=== PATIENT | female | born 1935 | race Asian ===

== ENCOUNTER → 2018-01-20 | Outpatient (CLI) | payer OTHER | LOC: FIMAGING 13:20 | PROVIDERS: ATTEND Internal Medicine | DX: Z12.31 Encounter for screening mammogram for malignant neoplasm of breast (principal); Z80.3 Family history of malignant neoplasm of breast ==

== ENCOUNTER 2018-02-25 20:43 | Inpatient (IN) | payer OTHER ==
[2018-02-25] MEDS ORDERED: VANCOMYCIN HCL/NORMAL SALINE 250 ML IV ONE (21:08)
[2018-02-25] MEDS ORDERED: cefTRIAXone 1 GM/DEXTROSE 1 GM/50 ML BAG IV ONE (21:10)
[2018-02-25 21:14] LABS: PLATELET COUNT 368 10^3/uL (150-400)
--- NOTE | 2018-02-25 21:16 | EDPHY ---
H & P Time Seen by Provider: 02/25/18 21:05 HPI/ROS: CHIEF COMPLAINT: Altered mental status, fever HISTORY OF PRESENT ILLNESS: The patient is an 82-year-old female who presents emergency department via EMS with altered mental status. Patient lives at [facility]. Her niece, who is her [id number], was unable to get a hold of her between 3 and 7. This is atypical. She had the staff with check on her. The patient was found on the floor. Is unclear exactly what happened but the niece thinks that she fell out of her rising chair. The patient is not had her baseline. She seems confused. She is not answering questions appropriately. EMS found the patient to have a temperature 103 degrees per report. February 23 is a day of celebration for the family. However, the patient was able to attend. She told her niece that she had a lower headache, neck pain and shoulder pain. Her niece checked on her the next day and she said she was fine but that she thought need to stay in bed. REVIEW OF SYSTEMS: 10 systems were reveiwed and are negative with the exception of the elements mentioned in the history of present illness. Past Medical/Surgical History: Includes polymyositis, hypertension, neuropathy Social history: Patient lives in [facility] Smoking Status: Never smoked Physical Exam: Vitals noted GENERAL: No acute distress, alert. Sitting in bed but her head is down. Her niece states this is her baseline HEENT: Eyes normal to inspection, normal pharynx, no signs of dehydration. Patient's left cheek extending to her left ear is erythematous and mildly warm. There is mild swelling of the face. The patient's knee states this is not normal. NECK: Normal, supple. Foot no spinal tenderness RESPIRATORY: Clear to auscultation bilaterally, no rales, rhonchi or wheezing. CVS: Regular rate and rhythm, no rubs, murmurs, or gallops. ABDOMEN: Soft, nontender, nondistended, no organomegaly. BACK: Normal to inspection, no CVA tenderness. SKIN: Normal color, no rash, warm, dry. No pallor. EXTREMITIES: No pedal edema, no calf tenderness, no Homans sign or cords, no joint swelling. NEURO/PSYCH: Alert and oriented, flat affect, patient moves all extremities but has weakness in her thighs. This is baseline. No obvious cranial nerve deficit. Constitutional: Initial Vital Signs Temperature (C) 38.0 C 02/25/18 20:46 Heart Rate 110 H 02/25/18 20:46 Respiratory Rate 18 02/25/18 20:46 Blood Pressure 140/72 H 02/25/18 20:46 O2 Sat (%) 95 02/25/18 20:46 O2 Delivery Mode Nasal Cannula O2 (L/minute) 2 Allergies/Adverse Reactions: No Known Allergies Allergy (Verified 02/25/18 20:48) Home Medications: Medication Instructions Recorded Aspirin 81mg (*) 09/06/17 Atenolol 09/06/17 Citalopram 09/06/17 Imuran 50 mg (*) 09/06/17 Medical Decision Making - Diagnostics Imaging Results: Imaging Impressions Chest X-Ray 02/25/18 21:08 Impression: Negative portable chest. Head CT 02/25/18 21:17 Impression: Negative noncontrast CT of the brain. Probable right maxillary sinusitis. Results called to Dr. Eleanor Monte at 9:45 PM at the time of the interpretation. ED Course/Re-evaluation: The in the emergency department I discussed possible etiologies with the patient and family. I answered all her questions. IV was placed. Laboratory studies, EKG and head CT were ordered. Blood cultures were drawn. Due the redness on the patient's face and fever the patient was given Rocephin 1 g IV and vancomycin 1 g IV[place] [address]. Patient's hematocrit is normal. Patient's coags are normal. Lactic acid is 1.9. 2150: CT of the head: Please refer the dictated report by Dr. Guzman. Patient has fluid in her right maxillary sinus. No other intracranial pathology. Patient's sodium is low at 127. Potassium 3.9. Creatinine 0.7. Total bili is 1.1. I discussed the case with the patient and her niece. Negative for flu. I discussed case with the hospitalist service, Dr. De Dios. Patient will be admitted for further evaluation care. Differential Diagnosis: My differential includes but is not limited to facial cellulitis, bacteremia, sepsis, CVA, dissection, aneurysm, pneumonia - Data Points Laboratory Results: Laboratory Results 02/25/18 20:55 02/25/18 20:55 02/25/18 02/25/18 02/25/18 21:20 20:55 20:55 WBC 22.30 10^3/uL H 10^3/uL (3.80-9.50) RBC 4.45 10^6/uL 10^6/uL (4.18-5.33) Hgb 14.7 g/dL g/dL (12.6-16.3) Hct 41.7 % % (38.0-47.0) MCV 93.7 fL fL (81.5-99.8) MCH 33.0 pg pg (27.9-34.1) MCHC 35.3 g/dL g/dL (32.4-36.7) RDW 15.0 % % (11.5-15.2) Plt Count 368 10^3/uL 10^3/uL (150-400) MPV 8.8 fL fL (8.7-11.7) Neut % (Auto) Not Reported Lymph % (Auto) Not Reported [place] % (Auto) Not Reported Eos % (Auto) Not Reported Baso % (Auto) Not Reported Nucleat RBC Rel Count Not Reported Absolute Neuts (auto) Not Reported Absolute Lymphs (auto) Not Reported Absolute Monos (auto) Not Reported Absolute Eos (auto) Not Reported Absolute Basos (auto) Not Reported Absolute Nucleated RBC Not Reported Immature Gran % Not Reported Seg Neutrophils % 87.0 % % Band Neutrophils % 6.0 % % Lymphocytes % 1.0 % % Monocytes % 5.0 % % Eosinophils % 0.0 % % Basophils % 0.0 % % Metamyelocytes % 1.0 % % Myelocytes % 0.0 % % Promyelocytes % 0.0 % % Blast Cells % 0.0 % % Immature Gran # Not Reported Absolute Seg Neuts 19.40 10^3/uL H 10^3/uL (1.70-6.50) Absolute Band Neuts 1.34 10^3/uL H 10^3/uL (0.00-0.70) Absolute Lymphocytes 0.22 10^3/uL L 10^3/uL (1.00-3.00) Absolute Monocytes 1.12 10^3/uL H 10^3/uL (0.30-0.80) Absolute Eosinophils 0.00 10^3/uL L 10^3/uL (0.03-0.40) Absolute Basophils 0.00 10^3/uL L 10^3/uL (0.02-0.10) Absolute Metamyelocyte 0.22 10^3/mL H 10^3/mL (0.00-0.00) Absolute Myelocytes 0.00 10^3/mL 10^3/mL (0.00-0.00) Absolute Promyelocytes 0.00 10^3/uL 10^3/uL (0.00-0.00) Absolute Plasma Cells 0.00 10^3/uL 10^3/uL (0.00-0.00) Nucleated RBCs 0 /100 WBC /100 WBC (0-0) Absolute Blast Cells 0.00 10^3/uL 10^3/uL (0.00-0.00) Plasma Cells % 0.0 % % Platelet Estimate ADEQUATE (ADEQ) Microcytic Cells 1+ H Oval Macrocytes 1+ H PT 15.0 SEC SEC (12.0-15.0) INR 1.16 (0.83-1.16) APTT 30.1 SEC SEC (23.0-38.0) VBG Lactic Acid Sodium Potassium Chloride Carbon Dioxide Anion Gap BUN Creatinine Estimated GFR Glucose Calcium Total Bilirubin Nasal Influenza A PCR NEGATIVE FOR FLU A (NEGATIVE) Nasal Influenza B PCR NEGATIVE FOR FLU B (NEGATIVE) 02/25/18 02/25/18 20:55 20:55 WBC RBC Hgb Hct MCV MCH MCHC RDW Plt Count MPV Neut % (Auto) Lymph % (Auto) [place] % (Auto) Eos % (Auto) Baso % (Auto) Nucleat RBC Rel Count Absolute Neuts (auto) Absolute Lymphs (auto) Absolute Monos (auto) Absolute Eos (auto) Absolute Basos (auto) Absolute Nucleated RBC Immature Gran % Seg Neutrophils % Band Neutrophils % Lymphocytes % Monocytes % Eosinophils % Basophils % Metamyelocytes % Myelocytes % Promyelocytes % Blast Cells % Immature Gran # Absolute Seg Neuts Absolute Band Neuts Absolute Lymphocytes Absolute Monocytes Absolute Eosinophils Absolute Basophils Absolute Metamyelocyte Absolute Myelocytes Absolute Promyelocytes Absolute Plasma Cells Nucleated RBCs Absolute Blast Cells Plasma Cells % Platelet Estimate Microcytic Cells Oval Macrocytes PT INR APTT VBG Lactic Acid 1.9 mmol/L mmol/L (0.7-2.1) Sodium 127 mEq/L L mEq/L (135-145) Potassium 3.9 mEq/L mEq/L (3.5-5.2) Chloride 93 mEq/L L mEq/L (97-110) Carbon Dioxide 23 mEq/l mEq/l (22-31) Anion Gap 11 mEq/L mEq/L (6-14) BUN 15 mg/dL mg/dL (7-23) Creatinine 0.7 mg/dL mg/dL (0.6-1.0) Estimated GFR > 60 Glucose 126 mg/dL H mg/dL (70-100) Calcium 8.6 mg/dL mg/dL (8.5-10.4) Total Bilirubin 1.1 mg/dL mg/dL (0.1-1.4) Nasal Influenza A PCR Nasal Influenza B PCR Medications Given: Discontinued Medications Vancomycin/Sodium Chloride (Vancomycin 1 Gm (Premix)) 250 mls @ 250 mls/hr IV EDNOW ONE PRN Reason: Protocol Stop: 02/25/18 22:07 Last Admin: 02/25/18 21:18 Dose: 250 mls Ceftriaxone Sodium/Dextrose (Rocephin 1 Gm (Premix)) 50 mls @ 100 mls/hr IV EDNOW ONE PRN Reason: Protocol Stop: 02/25/18 21:40 Last Admin: 02/25/18 21:17 Dose: 50 mls Departure - Departure Disposition: [place] Inpatient Acute Clinical Impression: Facial cellulitis, Hyponatremia Fever Qualifiers: Fever type: unspecified Qualified Code(s): R50.9 - Fever, unspecified Condition: Good Referrals: JENNY CANTU [Non Staff Provider (MD)] - As per Instructions
[2018-02-25 21:28] LABS: INR 1.16 (0.83-1.16)
[2018-02-25] MEDS ORDERED: ONDANSETRON DISINTEGRATING 4 MG TAB PO PRN (23:06)
[2018-02-25] MEDS ORDERED: ONDANSETRON 4 MG/2 ML VIAL IVP PRN (23:06)
[2018-02-25] MEDS ORDERED: NS 500 ML IV ONE (23:37)
[2018-02-25] MEDS: ACETAMINOPHEN 325 MG TAB PO PRN (23:49)
[2018-02-26] MEDS: AMPICILLIN/SULBACTAM 3 GM in NS 100 ML IV SCH ×5 (00:18→23:14)
--- NOTE | 2018-02-26 01:32 | PDGENHP ---
History and Physical - Chief Complaint Facial swelling - History of Present Illness 82 yo F w/ hx of polymyositis and HTN presents with facial swelling. Her family noted that the patient's face was red and swollen today. They also noticed some fatigue and decreased interaction. As a result, they brought her into the ED for evaluation. In the ED a L facial cellulitis was easily evident from exam. She is displaying sepsis physiology and mild hyponatremia. The patient herself denies symptoms aside from fatigue. She specifically denies fevers and facial pain. Case discussed with Dr. Monte; records reviewed and summarized above. History Information - Allergies/Home Medication List Allergies/Adverse Reactions: No Known Allergies Allergy (Verified 02/25/18 20:48) Home Medications: Aspirin 81mg (*) 09/06/17 [Last Taken Unknown] Atenolol 09/06/17 [Last Taken Unknown] Citalopram 09/06/17 [Last Taken Unknown] Imuran 50 mg (*) 09/06/17 [Last Taken Unknown] I have personally reviewed and updated: family history, medical history - Past Medical History hypertension Additional medical history: Polymyositis - Surgical History Additional surgical history: Patient states only thigh surgery - Family History Additional family history: Asked, denies - Social History Smoking Status: Never smoked Review of Systems Review of Systems: ROS: 10pt was reviewed & negative except for what was stated in HPI & below Physical Exam Physical Exam: Temp Pulse Resp BP Pulse Ox 37.9 C 98 14 119/52 L 96 02/25/18 23:25 02/25/18 23:25 02/25/18 23:25 02/25/18 23:25 02/25/18 23:25 O2 (L/minute) 2 Constitutional: appears nourished, uncomfortable Eyes: PERRL, EOMI Ears, Nose, Mouth, Throat: no oral mucosal ulcers, other (L maxillary facial redness and swelling) Cardiovascular: no murmur, rub, or gallop, tachycardia Respiratory: no respiratory distress, clear to auscultation Gastrointestinal: normoactive bowel sounds, soft, non-tender abdomen Skin: warm, other (L maxillary facial redness and swelling) Neurologic: AAOx3, CN II-XII Intact Psychiatric: interacting appropriately, not anxious Lab Data & Imaging Review 02/25/18 20:55 02/25/18 20:55 WBC 22.30 10^3/uL (3.80-9.50) H 02/25/18 20:55 RBC 4.45 10^6/uL (4.18-5.33) 02/25/18 20:55 Hgb 14.7 g/dL (12.6-16.3) 02/25/18 20:55 Hct 41.7 % (38.0-47.0) 02/25/18 20:55 MCV 93.7 fL (81.5-99.8) 02/25/18 20:55 MCH 33.0 pg (27.9-34.1) 02/25/18 20:55 MCHC 35.3 g/dL (32.4-36.7) 02/25/18 20:55 RDW 15.0 % (11.5-15.2) 02/25/18 20:55 Plt Count 368 10^3/uL (150-400) 02/25/18 20:55 MPV 8.8 fL (8.7-11.7) 02/25/18 20:55 Neut % (Auto) Not Reported 02/25/18 20:55 Lymph % (Auto) Not Reported 02/25/18 20:55 [place] % (Auto) Not Reported 02/25/18 20:55 Eos % (Auto) Not Reported 02/25/18 20:55 Baso % (Auto) Not Reported 02/25/18 20:55 Nucleat RBC Rel Count Not Reported 02/25/18 20:55 Absolute Neuts (auto) Not Reported 02/25/18 20:55 Absolute Lymphs (auto) Not Reported 02/25/18 20:55 Absolute Monos (auto) Not Reported 02/25/18 20:55 Absolute Eos (auto) Not Reported 02/25/18 20:55 Absolute Basos (auto) Not Reported 02/25/18 20:55 Absolute Nucleated RBC Not Reported 02/25/18 20:55 Immature Gran % Not Reported 02/25/18 20:55 Seg Neutrophils % 87.0 % 02/25/18 20:55 Band Neutrophils % 6.0 % 02/25/18 20:55 Lymphocytes % 1.0 % 02/25/18 20:55 Monocytes % 5.0 % 02/25/18 20:55 Eosinophils % 0.0 % 02/25/18 20:55 Basophils % 0.0 % 02/25/18 20:55 Metamyelocytes % 1.0 % 02/25/18 20:55 Myelocytes % 0.0 % 02/25/18 20:55 Promyelocytes % 0.0 % 02/25/18 20:55 Blast Cells % 0.0 % 02/25/18 20:55 Immature Gran # Not Reported 02/25/18 20:55 Absolute Seg Neuts 19.40 10^3/uL (1.70-6.50) H 02/25/18 20:55 Absolute Band Neuts 1.34 10^3/uL (0.00-0.70) H 02/25/18 20:55 Absolute Lymphocytes 0.22 10^3/uL (1.00-3.00) L 02/25/18 20:55 Absolute Monocytes 1.12 10^3/uL (0.30-0.80) H 02/25/18 20:55 Absolute Eosinophils 0.00 10^3/uL (0.03-0.40) L 02/25/18 20:55 Absolute Basophils 0.00 10^3/uL (0.02-0.10) L 02/25/18 20:55 Absolute Metamyelocyte 0.22 10^3/mL (0.00-0.00) H 02/25/18 20:55 Absolute Myelocytes 0.00 10^3/mL (0.00-0.00) 02/25/18 20:55 Absolute Promyelocytes 0.00 10^3/uL (0.00-0.00) 02/25/18 20:55 Absolute Plasma Cells 0.00 10^3/uL (0.00-0.00) 02/25/18 20:55 Nucleated RBCs 0 /100 WBC (0-0) 02/25/18 20:55 Absolute Blast Cells 0.00 10^3/uL (0.00-0.00) 02/25/18 20:55 Plasma Cells % 0.0 % 02/25/18 20:55 Platelet Estimate ADEQUATE (ADEQ) 02/25/18 20:55 Microcytic Cells 1+ H 02/25/18 20:55 Oval Macrocytes 1+ H 02/25/18 20:55 PT 15.0 SEC (12.0-15.0) 02/25/18 20:55 INR 1.16 (0.83-1.16) 02/25/18 20:55 APTT 30.1 SEC (23.0-38.0) 02/25/18 20:55 VBG Lactic Acid 1.9 mmol/L (0.7-2.1) 02/25/18 20:55 Sodium 127 mEq/L (135-145) L 02/25/18 20:55 Potassium 3.9 mEq/L (3.5-5.2) 02/25/18 20:55 Chloride 93 mEq/L (97-110) L 02/25/18 20:55 Carbon Dioxide 23 mEq/l (22-31) 02/25/18 20:55 Anion Gap 11 mEq/L (6-14) 02/25/18 20:55 BUN 15 mg/dL (7-23) 02/25/18 20:55 Creatinine 0.7 mg/dL (0.6-1.0) 02/25/18 20:55 Estimated GFR > 60 02/25/18 20:55 Glucose 126 mg/dL (70-100) H 02/25/18 20:55 Calcium 8.6 mg/dL (8.5-10.4) 02/25/18 20:55 Total Bilirubin 1.1 mg/dL (0.1-1.4) 02/25/18 20:55 Nasal Influenza A PCR NEGATIVE FOR FLU A (NEGATIVE) 02/25/18 21:20 Nasal Influenza B PCR NEGATIVE FOR FLU B (NEGATIVE) 02/25/18 21:20 Imaging Review: Imaging Impressions Chest X-Ray 02/25/18 21:08 Impression: Negative portable chest. Head CT 02/25/18 21:17 Impression: Negative noncontrast CT of the brain. Probable right maxillary sinusitis. Results called to Dr. Eleanor Monte at 9:45 PM at the time of the interpretation. Assessment & Plan Assessment: 82 yo F presents with L facial cellulitis. Plan: 1. Sepsis 2/2 L facial cellulitis - Possibly triggered by maxillary sinusitis seen on CT imaging (personally reviewed/interpreted). Sepsis present on admission per 2/4 SIRS criteria (WBC, HR). Lactate 1.9, which is reassuring. 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 - IVF bolus now noting continued tachycardia - Will treat with Unasyn IV - Blood cultures pending - Monitor on telemetry 2. Hyponatremia - Na 127 on admission, possibly related to infection and dehydration. - Recheck BMP after IVF 3. Leukocytosis - 2/2 infection; acute management as above. 4. Polymyositis - Hold Imuran in setting of acute infection 5. HTN - Hold home meds in setting of acute infection, restart as indicated. Diet - Regular Code - Full Ppx - LMWH Dispo - Admit under inpatient status, low dose noting age
[2018-02-26 04:40] LABS: PLATELET COUNT 331 10^3/uL (150-400)
[2018-02-26] MEDS: ACETAMINOPHEN 325 MG TAB PO PRN ×3 (05:55→18:07)
[2018-02-26] MEDS ORDERED: PROTOCOL MAGNESIUM 1 DOSE IV PRN (08:41)
[2018-02-26] MEDS ORDERED: PROTOCOL POTASSIUM 1 DOSE MISC PRN (08:41)
[2018-02-26] MEDS ORDERED: POTASSIUM CL 10 MEQ TAB PO ONE ×2 (08:58→22:00)
[2018-02-26] MEDS ORDERED: ENOXAPARIN 30 MG/0.3 ML SYR SC SCH (09:00)
[2018-02-26] MEDS ORDERED: MAGNESIUM SULF 1 GM/DEXTROSE 100 ML IV ONE (10:09)
--- NOTE | 2018-02-26 10:11 | PDMN ---
Medical Necessity Medical necessity: Pt meets IP criteria as of 02/25/2017 per MD and MCG M-70 ( Cellulitis); est los > 2 mn for ongoing treatment and management of facial cellulitis with SIRS criteria (leukocytosis, tachycardia) in an immunosuppressed patient; requiring IV ABX, IVF, cardiac monitoring and serial labs.
[2018-02-26] MEDS: NS W/ 20 KCl/L 1,000 ML IV SCH (11:20)
--- NOTE | 2018-02-26 12:34 | ASMTCMCOM ---
CM Note CM Note Notes: Pts case discussed in tx rounds. Pt is a 82 y/o female admitted for sepsis facial cellulitis. Pt typically lives on her own independently. Pts daughter lives nearby. Therapies have been ordered and awaiting recommendations. Needs are TBD at this time. CM to follow. Plan: TBD Date Signed: 02/26/2018 12:33 PM Electronically Signed By:CRISTINA Moya
--- NOTE | 2018-02-26 13:04 | HOSPPROG ---
Hospitalist Progress Note Assessment/Plan: 82 yo F presents with L facial cellulitis. 1. Sepsis 2/2 L facial cellulitis - Possibly triggered by maxillary sinusitis seen on CT imaging (personally reviewed/interpreted). Sepsis present on admission per 2/4 SIRS criteria (WBC, HR). Lactate 1.9, which is reassuring. 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 - cont IVF - cont Unasyn IV - Blood cultures pending - Monitor on telemetry 2. Hyponatremia - Na 127 on admission, possibly related to infection and dehydration. - Recheck BMP after IVF 3. Leukocytosis - 2/2 infection; acute management as above. 4. Polymyositis - Hold Imuran in setting of acute infection 5. HTN - Hold home meds in setting of acute infection, restart as indicated. 6. Encephalopathy, acute, metabolic, due to infection/dehydration. 7. Generalized weakness: PT/OT Diet - Regular Code - Full Ppx - LMWH Dispo - cont inpatient plan d/w nursing, pt, pt's daughter, pharmacist, CM at baseline Subjective: no cp or sob. somewhat confused. Objective: Vital Signs Temp Pulse Resp BP Pulse Ox 36.7 C 94 15 102/57 L 98 02/26/18 10:50 02/26/18 10:50 02/26/18 10:50 02/26/18 10:50 02/26/18 10:50 Laboratory Results 02/26/18 03:04 02/26/18 04:04 02/25/18 02/26/18 02/27/18 05:59 05:59 05:59 Intake Total 625 425 Output Total 0 Balance 625 425 PT 15.0 SEC (12.0-15.0) 02/25/18 20:55 INR 1.16 (0.83-1.16) 02/25/18 20:55 - Physical Exam Constitutional: chronically ill appearing Eyes: PERRL, EOMI Ears, Nose, Mouth, Throat: moist mucous membranes, hearing normal Cardiovascular: regular rate and rhythym, No edema Respiratory: no respiratory distress, no rales or rhonchi, clear to auscultation Gastrointestinal: normoactive bowel sounds Skin: warm, rash (erythematous macular rash on left side of face) Neurologic: No AAOx3 Psychiatric: interacting appropriately, encephalopathic Lymph, Heme, Immunologic: No petechiae ICD10 Worksheet Patient Problems: Problems Problem Status Onset Facial cellulitis Acute Fever Acute Hyponatremia Acute
[2018-02-27 04:48] LABS: PLATELET COUNT 335 10^3/uL (150-400)
[2018-02-27] MEDS: AMPICILLIN/SULBACTAM 3 GM in NS 100 ML IV SCH ×4 (06:10→23:25)
[2018-02-27] MEDS: NS W/ 20 KCl/L 1,000 ML IV SCH (06:10)
[2018-02-27] MEDS: ASCORBIC ACID 250 MG TAB PO SCH (10:06)
[2018-02-27] MEDS: ENOXAPARIN 40 MG/0.4 ML SYR SC SCH (10:06)
[2018-02-27] MEDS: ATENOLOL 50 MG TAB PO SCH (10:06)
[2018-02-27] MEDS: ASPIRIN 81 MG CHEWABLE TAB PO SCH (10:06)
[2018-02-27] MEDS: CYANO/VITAMIN B12 100 MCG TAB PO SCH (11:03)
--- NOTE | 2018-02-27 13:17 | HOSPPROG ---
Hospitalist Progress Note Assessment/Plan: 82 yo F presents with L facial cellulitis. 1. Sepsis 2/2 L facial cellulitis - Possibly triggered by maxillary sinusitis seen on CT imaging (personally reviewed/interpreted). Sepsis present on admission per 2/4 SIRS criteria (WBC, HR). Lactate 1.9, which is reassuring. 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 - cont IVF - cont Unasyn IV - Blood cultures NGTF - Monitor on telemetry 2. Hyponatremia - Na 127 on admission, possibly related to infection and dehydration. - Urine studies c/w appropriate retention of Na -cont IVF -recheck in am 3. Leukocytosis - 2/2 infection; acute management as above. 4. Polymyositis - Hold Imuran in setting of acute infection 5. HTN - Hold home meds in setting of acute infection, restart as indicated. 6. Encephalopathy, acute, metabolic, due to infection/dehydration. -significantly improved 7. Generalized weakness: PT/OT -May need SNF 8. Depression: will restart Celexa Diet - Regular Code - Full Ppx - LMWH Dispo - cont inpatient plan d/w pt, pt's daughter, pharmacist, CM at bedside Subjective: feeling better. more awake/alert. can hold a converstation Objective: Vital Signs Temp Pulse Resp BP Pulse Ox 36.7 C 74 18 101/45 L 96 02/27/18 11:55 02/27/18 11:55 02/27/18 11:55 02/27/18 11:55 02/27/18 11:55 Laboratory Results 02/27/18 03:22 02/27/18 03:22 02/26/18 02/27/18 02/28/18 05:59 05:59 05:59 Intake Total 625 2978 Output Total 0 700 Balance 625 2278 PT 15.0 SEC (12.0-15.0) 02/25/18 20:55 INR 1.16 (0.83-1.16) 02/25/18 20:55 - Physical Exam Eyes: PERRL, EOMI Ears, Nose, Mouth, Throat: moist mucous membranes, hearing normal Cardiovascular: regular rate and rhythym, No edema Respiratory: no respiratory distress, no rales or rhonchi, clear to auscultation Gastrointestinal: normoactive bowel sounds Skin: warm, erythema, rash Musculoskeletal: generalized weakness Neurologic: AAOx3 Psychiatric: interacting appropriately, not anxious, not encephalopathic Lymph, Heme, Immunologic: No petechiae ICD10 Worksheet Patient Problems: Problems Problem Status Onset Facial cellulitis Acute Fever Acute Hyponatremia Acute
--- NOTE | 2018-02-27 19:05 | ASMTCMCOM ---
CM Note CM Note Notes: Reviewed chart, spoke with KIMI Jimenez. PT/OT recommend SNF rehab for discharge. Per Irina Jimenez, pt's niece is the pt's [facility] . CM attempted to call Irina regarding SNF preferences, unable to reach. CM to follow up with pt and pt's family tomorrow (Thursday02/28/18) regarding placement. Discharge Plan: Likely SNF Date Signed: 02/27/2018 07:04 PM Electronically Signed By:Nathalie Padilla RN
[2018-02-28 05:31] LABS: PLATELET COUNT 339 10^3/uL (150-400)
[2018-02-28] MEDS: AMPICILLIN/SULBACTAM 3 GM in NS 100 ML IV SCH ×4 (05:31→23:39)
[2018-02-28] MEDS ORDERED: MAGNESIUM SULF 1 GM/DEXTROSE 100 ML IV ONE (09:25)
[2018-02-28] MEDS: ASCORBIC ACID 250 MG TAB PO SCH (09:57)
[2018-02-28] MEDS: ASPIRIN 81 MG CHEWABLE TAB PO SCH (09:57)
[2018-02-28] MEDS: ATENOLOL 50 MG TAB PO SCH (09:57)
[2018-02-28] MEDS: ENOXAPARIN 40 MG/0.4 ML SYR SC SCH (09:58)
[2018-02-28] MEDS: CYANO/VITAMIN B12 100 MCG TAB PO SCH (09:58)
--- NOTE | 2018-02-28 12:56 | HOSPPROG ---
Hospitalist Progress Note Assessment/Plan: 82 yo F presents with L facial cellulitis. 1. Sepsis 2/2 L facial cellulitis: Sepsis resolved. Cellulitis improving - Possibly triggered by maxillary sinusitis seen on CT imaging (personally reviewed/interpreted). Sepsis present on admission per 2/4 SIRS criteria (WBC, HR). Lactate 1.9, which is reassuring. 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 - off IVF - cont Unasyn IV today, consider changing to PO tomorrow (Augmentin may be a good choice) - Blood cultures NGTF - Monitor on telemetry 2. Hyponatremia - Na 127 on admission, possibly related to infection and dehydration. - Urine studies c/w appropriate retention of Na -cont IVF -much improved and resolving. -Given significant improvement (Na 134 today) will stop checking 3. Leukocytosis - 2/2 infection; acute management as above. 4. Polymyositis - Hold Imuran in setting of acute infection. Can restart on discharge 5. HTN - Hold home meds in setting of acute infection, restart as indicated. -cont to hold home meds for now 6. Encephalopathy, acute, metabolic, due to infection/dehydration. -resolved 7. Generalized weakness: PT/OT -needs SNF 8. Depression: will restart Celexa Diet - Regular Code - Full Ppx - LMWH Dispo - cont inpatient. Can hopefully d/c tomorrow if placement is established and clinically cont to improve Subjective: awake, alert. denies cp or sob. no n/v Objective: Vital Signs Temp Pulse Resp BP Pulse Ox 37.2 C 67 18 106/52 L 95 02/28/18 11:04 02/28/18 11:04 02/28/18 11:04 02/28/18 11:04 02/28/18 11:04 Laboratory Results 02/28/18 03:28 02/28/18 03:28 02/27/18 02/28/18 03/01/18 05:59 05:59 05:59 Intake Total 2978 2130 Output Total 700 800 Balance 2278 1330 PT 15.0 SEC (12.0-15.0) 02/25/18 20:55 INR 1.16 (0.83-1.16) 02/25/18 20:55 - Physical Exam Constitutional: no apparent distress Eyes: PERRL Ears, Nose, Mouth, Throat: moist mucous membranes, hearing normal Cardiovascular: regular rate and rhythym, No edema Respiratory: no respiratory distress, no rales or rhonchi, clear to auscultation Gastrointestinal: normoactive bowel sounds, soft, non-tender abdomen Skin: warm, other (erythematous macular rash left face significantly improving) Neurologic: AAOx3 Psychiatric: interacting appropriately, not anxious, not encephalopathic Lymph, Heme, Immunologic: No petechiae ICD10 Worksheet Patient Problems: Problems Problem Status Onset Facial cellulitis Acute Fever Acute Hyponatremia Acute
--- NOTE | 2018-02-28 14:12 | ASMTCMCOM ---
CM Note CM Note Notes: Met with patient and her niece. Therapies are recommending SNF upon discharge. Per her niece Madhavi Arevalo is in very close proximity to her. Referrals to local SNF via allscripts. PASSR filled out. CM available should other needs arise. Plan: DC to SNF when medically cleared for discharge. Date Signed: 02/28/2018 02:11 PM Electronically Signed By:Layne Mccrary RN
[2018-03-01] MEDS: AMPICILLIN/SULBACTAM 3 GM in NS 100 ML IV SCH ×2 (05:08→11:50)
[2018-03-01] MEDS: ASPIRIN 81 MG CHEWABLE TAB PO SCH (08:02)
[2018-03-01] MEDS: ENOXAPARIN 40 MG/0.4 ML SYR SC SCH (08:02)
[2018-03-01] MEDS: ATENOLOL 50 MG TAB PO SCH (08:02)
[2018-03-01] MEDS: CYANO/VITAMIN B12 100 MCG TAB PO SCH (08:02)
[2018-03-01] MEDS: ASCORBIC ACID 250 MG TAB PO SCH (08:02)
--- NOTE | 2018-03-01 09:32 | HOSPPROG ---
Hospitalist Progress Note Assessment/Plan: 82 yo F presents with L facial cellulitis. 1. Sepsis 2/2 L facial cellulitis: Sepsis resolved. Cellulitis improving Possibly triggered by maxillary sinusitis seen on CT imaging (personally reviewed/interpreted). Sepsis present on admission per 2/4 SIRS criteria (WBC, HR). Lactate 1.9, which is reassuring. 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 cont Unasyn IV today, augmentin on dc Blood cultures NGTF 2. Hyponatremia - Na 127 on admission, possibly related to infection and dehydration. Urine studies c/w appropriate retention of Na much improved and resolving. Given significant improvement (Na 134 today) will stop checking 3. Leukocytosis - 2/2 infection; acute management as above. 4. Polymyositis - restart Imuran 5. HTN - Hold home meds in setting of acute infection, restart as indicated. 6. Encephalopathy, acute, metabolic, due to infection/dehydration. resolved 7. Generalized weakness: PT/OT needs SNF 8. Depression: will restart Celexa Diet - Regular Code - Full Ppx - LMWH Dispo - to snf today > 30 minutes Subjective: feels well. amenable to rehab. face improved, per pt Objective: Vital Signs Temp Pulse Resp BP Pulse Ox 37.0 C 80 18 138/72 H 92 03/01/18 07:26 03/01/18 07:26 03/01/18 07:26 03/01/18 07:26 03/01/18 07:26 Laboratory Results 02/28/18 03:28 03/01/18 03:30 02/28/18 03/01/18 03/02/18 05:59 05:59 05:59 Intake Total 2130 1570 Output Total 800 1100 Balance 1330 470 PT 15.0 SEC (12.0-15.0) 02/25/18 20:55 INR 1.16 (0.83-1.16) 02/25/18 20:55 ICD10 Worksheet Patient Problems: Problems Problem Status Onset Facial cellulitis Acute Fever Acute Hyponatremia Acute
[2018-03-01] MEDS ORDERED: azaTHIOprine 50 MG TAB PO SCH (09:45)
[2018-03-01] MEDS ORDERED: CITALOPRAM 20 MG TAB PO SCH (09:45)
--- NOTE | 2018-03-01 12:24 | ASMTCMCOM ---
CM Note CM Note Notes: Per medicine, patient ready for dc to SNF. Per her niece, Michelle, she would prefer [place] first choice and [facility] as second choice, Awaiting confirmations from SNF. Plan: DC to SNF Date Signed: 03/01/2018 12:23 PM Electronically Signed By:Layne Mccrary RN
--- NOTE | 2018-03-01 13:31 | PDIAF ---
- Diagnosis Diagnosis: facial cellulitis Code Status: Full Code - Medication Management Additional Medication Instructions: augmentin 875 mg po bid through pm 9 Discharge Medications: electronically signed and located in the Home Medication List. - Orders Services needed: Registered Nurse, Physical Therapy, Occupational Therapy, Speech Language Pathologist Isolation Type: None - Follow Up Care Current Providers and Referrals: JENNY CANTU [Non Staff Provider (MD)] - As per Instructions
--- NOTE | 2018-03-01 13:39 | ASMTLACE ---
LACE Length of stay for Answers: 3 days current admission Acuity / Level of Answers: Yes Care: Did the patient have an inpatient admission? Comorbidities - select Answers: Other Notes: HTN; Polymyositis all that apply # of Emergency department Answers: 1-2 visits in the last 6 months Score: 8 Date Signed: 03/01/2018 01:38 PM Electronically Signed By:Layne Mccrary RN
--- NOTE | 2018-03-01 14:06 | WOCRNPDOC ---
WOCRN Advanced Assessment Note - Skin Integrity Problem, Advanced Assess Rectum Dressing Type: Open to Air Other Dressing Type: calazime cream Radha Wound Tissue: Blanching, Intact Wound Bed Color: Canyon Wound Edges: Attached, Well Defined Site Measurement - Head-to-Toe Length X Width X Depth (cm): 0.3x0.3x0.1 Skin Integrity Problem Comment: Patient stood with assist from KIMI Casper. Area cleaned gently with wipes. Small open area to right of rectum. Patient describes having had a wound to this area for some time and indicates to me that when she cleans herself after having a BM, she applies significant pressure to this area and has opened and reopened this area repeatedly. Suggested that patient clean herself gently, and using wipes as to allow the area to heal. Calazime applied to the area. Wound care will not continue to round. Please reconsult if wound worsens.
[2018-03-01 15:17] VITALS: BP 131/69
--- NOTE | 2018-03-01 19:04 | GDS ---
DISCHARGE DIAGNOSES: 1. Sepsis. 2. Facial cellulitis. 3. Polymyositis. 4. Hyponatremia. 5. Hypertension. 6. Toxic metabolic encephalopathy. 7. Generalized weakness. Please see admission history and physical by Dr. Jack Bernal. The patient presented to the e mergency room on the evening of the with facial swelling. She was started on Unasyn given concer n for adjacent sinus involvement. She had sepsis as evidenced by leukocytosis and fever. Her immuno suppressants were held. She received IV antibiotics with improvement in her symptoms. She was seen by PT OT who felt that she would benefit from [facility] facility. She is discharged there to [facility] a 7-day course of antibiotics. /[id number]/MODL
--- NOTE | 2018-03-02 10:01 | ASDISCHSUM ---
Discharge Information Plan Status:SNF Medically Cleared to Leave:02/28/2018 Discharge Date:03/01/2018 04:21 PM D/C Disposition:Assisted Facility ADT D/C Disposition:Assisted Facility Projected Discharge Date:03/01/2018 11:00 AM Transportation at D/C:Wheelchair Van Discharge Delay Reason: Follow-Up Date:03/01/2018 11:00 AM Discharge Slot: Final Diagnosis: Placement Information Referral Type:*Jail/SNF Referral ID:[id number] Provider Name:Roselyn Rea [place] Address 1:[address] Address 2: City:[place] Selection Factors: State:[place] Patient Contact Information Contact Name:DARIEL Relationship:Lupe Address: City:[place] Alternate Phone: State/Zip Code:[place] Email: Financial Information Financial Class:Medicare Primary Plan Desc:MEDICARE INPATIENT Primary Plan Number:[id number] Secondary Plan Desc:EQUITABLE INSURANCE Secondary Plan Number:[id number] Assessment Information LACE LACE Length of stay for Answers: 3 days current admission Acuity / Level of Answers: Yes Care: Did the patient have an inpatient admission? Comorbidities - select Answers: Other Notes: HTN; Polymyositis all that apply # of Emergency department Answers: 1-2 visits in the last 6 months Score: 8 Date Signed: 03/01/2018 01:38 PM Electronically Signed By:Layne Mccrary RN [facility] CM Progress Note CM Note CM Note Notes: Pts case discussed in tx rounds. Pt is a 82 y/o female admitted for sepsis facial cellulitis. Pt typically lives on her own independently. Pts daughter lives nearby. Therapies have been ordered and awaiting recommendations. Needs are TBD at this time. CM to follow. Plan: TBD Date Signed: 02/26/2018 12:33 PM Electronically Signed By:CRISTINA Moya [facility] CM Progress Note CM Note CM Note Notes: Reviewed chart, spoke with KIMI Jimenez. PT/OT recommend SNF rehab for discharge. Per Irina Jimenez, pt's niece is the pt's [facility] . CM attempted to call Irina regarding SNF preferences, unable to reach. CM to follow up with pt and pt's family tomorrow (Thursday02/28/18) regarding placement. Discharge Plan: Likely SNF Date Signed: 02/27/2018 07:04 PM Electronically Signed By:Nathalie Padilla RN [facility] CM Progress Note CM Note CM Note Notes: Met with patient and her niece. Therapies are recommending SNF upon discharge. Per her niece Irina Madhavi [facility] is in very close proximity to her. Referrals to local SNF via allscripts. PASSR filled out. CM available should other needs arise. Plan: DC to SNF when medically cleared for discharge. Date Signed: 02/28/2018 02:11 PM Electronically Signed By:Layne Mccrary RN [facility] CM Progress Note CM Note CM Note Notes: Per medicine, patient ready for dc to SNF. Per her niece, Michelle, she would prefer [place] first choice and [facility] as second choice, Awaiting confirmations from SNF. Plan: DC to SNF Date Signed: 03/01/2018 12:23 PM Electronically Signed By:Layne Mccrary RN Intervention Information Intervention Type:*Incorrect Registration Date of Service:02/25/2018 11:27 PM Patient Type:Inpatient Staff Member:Gladys Hernández Hours: Discipline: Severity: Comment: Intervention Type:*IM-Signed Date of Service:03/01/2018 01:53 PM Patient Type:Inpatient Staff Member:Chey Warren Hours: Discipline: Severity: Comment:
== END 2018-03-01 16:21 | DRG 871 ==
LOC: EDUNIT# → OBSVTOIN 23:08 → F2W 23:15
PROVIDERS: ADMIT Family Medicine; ATTEND Internal Medicine
DX: A41.9 Sepsis, unspecified organism (principal); L03.211 Cellulitis of face; J01.00 Acute maxillary sinusitis, unspecified; G93.41 Metabolic encephalopathy; E86.0 Dehydration; R53.1 Weakness; E87.1 Hypo-osmolality and hyponatremia; M33.20 Polymyositis, organ involvement unspecified; Z79.899 Other long term (current) drug therapy; I10 Essential (primary) hypertension; F32.9 Major depressive disorder, single episode, unspecified
CPT/HCPCS: 96365; 97116-GP; 97161-GP; 97166-GO; 97530-GP; 97535-GO; J0295; J0696; J1650; J3370; J3475; J7500